=== PATIENT | female | born 1965 | race Caucasian/White ===

== ENCOUNTER 2018-11-13 20:04 | Emergency (ER) | payer OTHER ==
[~2018-11-13] VITALS: Ht 188 cm; Wt 108.9 kg
[2018-11-13 21:04] LABS: ABSOLUTE NEUTROPHILS 7.5 thou/uL (1.4-8.2); BASOPHILS 0.8 % (0.0-2.0); EOSINOPHILS 0.4 % (0.0-3.0); HEMATOCRIT 38.7 % (37.0-47.0); HEMOGLOBIN 12.9 gm/dL (12.0-15.0); LYMPHOCYTES 9.2 % (24.0-44.0); MCH 28.4 pg (26.0-34.0); MCHC 33.2 g/dL (28.0-37.0); MCV 85.4 fL (80.0-100.0); PLATELET COUNT 254 thou/uL (150-400); POLYS 80.6 % (36.0-66.0); RBC 4.54 mil/uL (4.20-5.00); RDW 18.1 % (10.5-14.5); WBC 9.3 thou/uL (4.0-11.0)
[2018-11-13 21:10] LABS: CALCIUM 8.9 mg/dL (8.5-10.1); CREATININE 0.9 mg/dL (0.6-1.0); POTASSIUM 4.9 mmol/L (3.5-5.1)
[2018-11-13 23:03] VITALS: BP 117/67
== END 2018-11-13 23:08 | disposition home or self-care (01) ==
LOC: ER 20:04
PROVIDERS: Emergency Medicine
DX: B34.9 Viral infection, unspecified (principal); J02.9 Acute pharyngitis, unspecified

== ENCOUNTER 2019-05-29 02:05 | Emergency (ER) | payer OTHER ==
[~2019-05-29] VITALS: Ht 188 cm; Wt 113.4 kg
[2019-05-29 03:24] LABS: ABSOLUTE NEUTROPHILS 3.5 thou/uL (1.4-8.2); BASOPHILS 1.2 % (0.0-2.0); EOSINOPHILS 3.5 % (0.0-3.0); HEMATOCRIT 39.2 % (37.0-47.0); HEMOGLOBIN 13.1 gm/dL (12.0-15.0); LYMPHOCYTES 23.3 % (24.0-44.0); MCH 31.4 pg (26.0-34.0); MCHC 33.5 g/dL (28.0-37.0); MCV 93.6 fL (80.0-100.0); MONOCYTES 10.5 % (1.0-8.0); PLATELET COUNT 226 thou/uL (150-400); POLYS 61.5 % (36.0-66.0); RBC 4.19 mil/uL (4.20-5.00); RDW 13.4 % (10.5-14.5); WBC 5.7 thou/uL (4.0-11.0)
[2019-05-29 03:26] LABS: ANION GAP 10 mmol/L (7-16); BUN 23 mg/dL (7-18); CALCIUM 8.4 mg/dL (8.5-10.1); CHLORIDE 105 mmol/L (98-107); CO2 26 mmol/L (21-32); CREATININE 0.9 mg/dL (0.6-1.0); GLUCOSE 103 mg/dL (74-106); POTASSIUM 3.8 mmol/L (3.5-5.1); SODIUM 141 mmol/L (136-145)
[2019-05-29 03:34] LABS: ALBUMIN 3.1 g/dL (3.4-5.0); DIRECT BILIRUBIN < 0.1 mg/dL (<0.1-0.3); SGOT 19 U/L (15-37); SGPT 25 U/L (30-65); TOTAL BILIRUBIN 0.2 mg/dL (<0.1-1.0); TOTAL PROTEIN 6.9 g/dL (6.4-8.2)
[2019-05-29] MEDS ORDERED: NORCO 5-325 TA1 EAC1 PO (03:57)
[2019-05-29 03:58] VITALS: BP 159/77
--- NOTE | 2019-05-29 17:33 | EKG ---
[place] [address] [facility] [place] [address] ELECTROCARDIOGRAM REPORT Name: GEORGI HERNANDEZ Room #: DEP SIVA Ortiz#: [id number] Admission: 05/29/19 Attend Phys: Discharge: 05/29/19 Date of : 63 Report #: [id number] THIS REPORT FOR: //name// [facility] ED Test Date: 2019-05-29 Test Time: 02:19:49 Pat Name: GEORGI HERNANDEZ Department: Room: Gender: F [employer]: IGOR : 1965 Requested By: Judie Lima Order Number: [id number] MD: Harmeet oL Measurements Intervals [place] Rate: 75 P: 40 AK: 188 QRS: 35 QRSD: 83 T: 64 QT: 428 QTc: 479 Interpretive Statements Sinus rhythm Borderline prolonged QT interval No previous ECG available for comparison Electronically Signed On 05-29-2019 17:32:50 [employer] M113 by Harmeet Lo [email or web address] <ELECTRONICALLY SIGNED> By: Harmeet Lo MD, [facility] 05/29/19 1732 0219 0219 Harmeet Lo MD, FACC /EPI
== END 2019-05-29 04:15 | disposition home or self-care (01) ==
LOC: ER 02:05
PROVIDERS: Emergency Medicine
DX: M79.642 Pain in left hand (principal); F17.210 Nicotine dependence, cigarettes, uncomplicated; Z88.5 Allergy status to narcotic agent

== ENCOUNTER 2019-12-22 07:13 | Emergency (ER) | payer OTHER ==
[~2019-12-22] VITALS: Ht 188 cm; Wt 113.4 kg
[~2019-12-22 07:13] MED LIST: NORCO 5-325 TA1 EAC1 PO
[2019-12-22 08:08] LABS: BASOPHILS 0.6 % (0.0-2.0); EOSINOPHILS 0.2 % (0.0-3.0); HEMATOCRIT 41.1 % (37.0-47.0); LYMPHOCYTES 4.8 % (24.0-44.0); MCH 31.9 pg (26.0-34.0); MCV 93.7 fL (80.0-100.0); MONOCYTES 3.3 % (1.0-8.0); PLATELET COUNT 208 thou/uL (150-400); POLYS 91.1 % (36.0-66.0); RBC 4.38 mil/uL (4.20-5.00); RDW 13.4 % (10.5-14.5); WBC 13.2 thou/uL (4.0-11.0)
[2019-12-22 08:11] LABS: CALCIUM 8.6 mg/dL (8.5-10.1)
[2019-12-22 08:17] LABS: DIRECT BILIRUBIN 0.1 mg/dL (<0.1-0.2); TOTAL BILIRUBIN 0.5 mg/dL (0.2-1.0); TOTAL PROTEIN 7.1 g/dL (6.4-8.2)
[2019-12-22 09:05] LABS: URINE BILIRUBIN NEGATIVE (Negative); URINE BLOOD NEGATIVE (Negative); URINE CLARITY CLEAR; URINE COLOR YELLOW; URINE GLUCOSE-RANDOM* NEGATIVE (Negative); URINE KETONES NEGATIVE (Negative); URINE LEUKOCYTES-REFLEX NEGATIVE (Negative); URINE NITRITE-REFLEX NEGATIVE (Negative); URINE PROTEIN (DIPSTICK) NEGATIVE (Negative)
[2019-12-22] MEDS ORDERED: ZOFRAN ODT4 MG PO (11:00)
[2019-12-22 11:10] VITALS: BP 98/56
== END 2019-12-22 11:10 | disposition home or self-care (01) ==
LOC: ER 07:13
PROVIDERS: Emergency Medicine
DX: R11.2 Nausea with vomiting, unspecified (principal); M79.601 Pain in right arm; F17.210 Nicotine dependence, cigarettes, uncomplicated; Z79.899 Other long term (current) drug therapy; Z88.8 Allergy status to other drugs, medicaments and biological substances; Z90.89 Acquired absence of other organs

== ENCOUNTER 2021-07-26 17:35 | Emergency (ER) | payer OTHER ==
[~2021-07-26] VITALS: Ht 185.4 cm; Wt 127.0 kg
[~2021-07-26 17:35] MED LIST changes: +ZOFRAN ODT4 MG PO
[2021-07-26] MEDS ORDERED: CEPHALEXIN500 MG PO (19:24)
[2021-07-26] MEDS ORDERED: FLEXERIL PO (19:25)
[2021-07-26 19:46] VITALS: BP 142/86
== END 2021-07-26 19:48 | disposition home or self-care (01) ==
LOC: ER 17:35
DX: L03.116 Cellulitis of left lower limb (principal); L03.115 Cellulitis of right lower limb; F17.210 Nicotine dependence, cigarettes, uncomplicated; Z88.8 Allergy status to other drugs, medicaments and biological substances